=== PATIENT | male | born 1960 | race Caucasian/White ===

== ENCOUNTER 2017-11-14 05:30 | Day surgery (SDC) | payer OTHER ==
[2017-11-09 13:21] VITALS: BMI 40.0
--- NOTE | 2017-11-09 13:36 | PAT Medication Instructions ---
Service Date Nov 09, 2017. Current Home Medication List Acetaminophen (Tylenol), 1-2 TAB PO PRN Ibuprofen (Advil), 200-400 MG PO PRN Multiple Vitamins W/ Minerals (Multi For Her 50+), 1 TAB PO QAM Valsartan/Hctz (Diovan Hct 160MG/12.5MG), 1 TAB PO QAM Vitamins C & E (Vitamin C), 1 TAB PO QAM [Iron Tab], 1 TAB PO QAM Medication Instructions For Your Scheduled Surgery - Check with surgeon for instructions: Ibuprofen (Advil), 200-400 MG PO PRN - Hold the following medications the morning of surgery: [Iron Tab], 1 TAB PO QAM Vitamins C (Vitamin C), 1 TAB PO QAM Multiple Vitamins W/ Minerals (Multi For Her 50+), 1 TAB PO QAM Valsartan/Hctz (Diovan Hct 160MG/12.5MG), 1 TAB PO QAM - Take the following medications the morning of surgery with a sip of water: Acetaminophen (Tylenol), 1-2 TAB PO PRN (okay to take up to 4 hours prior to surgery if needed) - Take the following medications as scheduled the night before surgery: Acetaminophen (Tylenol), 1-2 TAB PO PRN (okay to take up to 4 hours prior to surgery if needed) If you have any questions please call us at [phone] or [phone] or [phone]
[2017-11-09 14:58] LABS: BASO % 0.5 %; BASO ABS # 0.05 K/uL (0-0.2); EOS % 1.1 %; HEMATOCRIT 46.9 % (42-52); HEMOGLOBIN 16.9 g/dL (14.0-18.0); IG# 0.03 K/uL (0.00-0.02); LYMPH % 15.9 %; LYMPH ABS # 1.49 K/uL (1.2-3.4); MEAN CELL VOLUME 88.2 fL (80-100); MEAN CORPUSCULAR HEMOGLOBIN 31.8 pg (25-34); MEAN PLATELET VOLUME 10.5 fL (7.4-10.4); MONO ABS # 0.56 K/uL (0.11-0.59); NEUT % 76.2 %; NEUT ABS # 7.17 K/uL (1.4-6.5); PLATELET COUNT 167 K/uL (130-400); RED CELL DISTRIBUTION WIDTH CV 13.6 % (11.5-14.5); RED CELL DISTRIBUTION WIDTH SD 43.7 fL (36.4-46.3)
--- NOTE | 2017-11-10 08:22 | Radiation Oncology Follow-Up ---
Radiation Oncology Follow-Up Date of Visit Nov 10, 2017. Reason For Visit To have placement of gold fiducial markers and Space OAR Diagnosis (1) Prostate cancer Status: Acute Onset Date: 07/03/2017 Location: Left lobe of the prostate Histology Subtype: adenocarcinoma Stage: ll Permanent Comment: Rising PSA, 5.900 on 04/01/2015 Status post core needle biopsies 06/01/2015, benign Rising PSA, 7.549 on 12/19/2016 Status post core needle biopsies 07/03/2017 Adenocarcinoma prostate Darrion 3+4 Prostate volume 52.17 Prostate density 0.15 Last Edited By: Malini Myers on Aug 30, 2017 11:22 History of Present Illness In summary Mr. Kat is a 56-year-old male without family history of prostate cancer. He is been followed with serial prostate-specific antigens. Back in February 2015 his prostate-specific antigen increased to 5.866. The prostate-specific antigen was repeated on 04/01/2015 and remained elevated at 5.900. At that time the patient was under the care of Dr. Sadiq Briones scrub tech and at [facility] underwent ultrasound-guided biopsies. Biopsies at that time were benign. He continued to be followed with prostate- specific antigens in December 2015 at 6.493, 06/20/2016 at 6.290 and ultimately on with a prostate-specific antigen of 7.915. At this point the patient had moved to the [place] area was under the care of Dr. Dubon. She discussed diagnostic options. With the patient's permission she proceeded with ordering a staging MRI performed on 06/05/2017. This showed 2 areas of suspicion. 1 area measured 1.6 x 1.1 cm in the left peripheral zone, mid and apex, anterior region and a second measuring 1.2 cm in the right transitional zone, base, anterior region. The study was given a PI-RADS 3. The ultrasound- guided biopsy followed on 07/03/2017. 2 biopsies were positive. One biopsy was from the left lateral mid gland containing Darrion grade 3+4 involving 10% of the core tissue sample a Darrion pattern 4 representing 10% of the overall tumor volume. The second positive biopsy was from the left lateral apex revealed Darrion grade 3+4 involving 5% of the core tissue sample with a Darrion pattern 4 representing 10% of the tumor volume. The clinical stage was therefore a T1c and the biopsy stage was a T2b. The patient is being seen by Dr. Gómez on September 14 to discuss the surgical treatment options. We were asked to see the patient to discuss the radiation treatment options. I met with the patient and his friend Poornima and reviewed specifics of his prostate cancer based on the NCCN Guidelines and in particular the 2010 guideline updates. As part of that discussion we initially evaluated anticipated survival of a 56-year-old male of average health. This indicated a likely survival of 23.7 years. We then reviewed his tumor classification. I reviewed with him the very low risk category of which the patient shares several positive findings. These include clinical stage TIc, prostate-specific antigen density of 0.15, two or less biopsies positive and tumor volume less than 50% in any one biopsy sample. The patient did not meet the remaining 2 criteria. He also does not meet the criteria for low risk given the [place] score. He therefore is in the favorable intermediate risk category. Within this grouping he would be closer to the low risk category given the small amount of Darrion pattern 4. I reviewed with them the Avery table findings. The probability of organ confined disease based on Avery tables is 59%. The probability of extraprostatic extension is 34%. The probability of seminal vesicle involvement is 6% and lymph node involvement is 1%. I told him that I utilized the Avery table data to help determine the volume to be treated. I told him that if I were to treat him with radiation I would want to include the prostate and immediate periprostatic tissues but would not necessarily need to include the majority of seminal vesicles and would definitely not include the pelvic lymph nodes. Because of this I did not feel he would be the best candidate for a prostate seed implant as monotherapy. I therefore suggested consideration of a hypo-fractionated course of external radiation. This would consist of IMRT and IGRT to encompass the target volume delivered daily over 28 fractions. This treatment would be proceeded by placement of gold fiducial markers and SpaceOAR. I reviewed with the patient potential risks and side effects of a course of hypo -fractionated radiation. This included a discussion of both acute and chronic side effects including the possibility of decreased potency or impotence. Included in that discussion with the small possibility of a secondary malignancy in 10-20 years of the bladder or rectum. I also reviewed with the patient the likelihood of tumor control. Patient is scheduled to see Dr. Gómez September 14. I told him that I felt there was no right treatment for him and that he should proceed with comparing the 2 treatments and choosing that treatment which he feels most comfortable. I told him that if he were to have additional questions that I would be happy to answer them on the phone. He indicated he would make a decision and would let us know his final preference. If he is to proceed with radiation we will proceed with scheduling him for gold fiducial markers seeds placement and SpaceOAR. This would be followed by a treatment planning MRI and ultimately by a CT simulation. Interim History Mr. Rosario reported to our office on November 03, 2017 to undergo outpatient placement of Space OAR and gold fiducial markers. He had taken his preprocedure medication as instructed. He had taken lorazepam 0.5 mg and oxycodone APAP 7.5/325 one hour prior to his procedure. The procedure was started. He unfortunately could not tolerate the anal probe. He was given additional second dose of the lorazepam and oxycodone. After waiting sufficient amount of time the procedure was attempted once again. Unfortunately he could not tolerate the rectal probe. At that time the decision was made to abort the outpatient setting and schedule him to have this procedure with the use of anesthesia. Allergies Coded Allergies: Lisinopril (Verified Allergy, Unknown, COUGH, 11/09/17) Home Medications Scheduled Acetaminophen (Tylenol), 1-2 TAB PO PRN Ibuprofen (Advil), 200-400 MG PO PRN Multiple Vitamins W/ Minerals (Multi For Her 50+), 1 TAB PO QAM Valsartan/Hctz (Diovan Hct 160MG/12.5MG), 1 TAB PO QAM Vitamins C & E (Vitamin C), 1 TAB PO QAM [Iron Tab], 1 TAB PO QAM Review of Systems Gastrointestinal: Symptoms: WNL Oral: Symptoms: No Problems Respiratory: Symptoms: WNL Urinary: Additional Notes: AUA score of 6. He does not require any medications to help with urination. Skin: Symptoms: No Problems Physical Exam Taken preoperatively. Taken at our office consultation. Height 5 foot 11 inches. Weight 293 pounds. Temperature 36.6. Pulse was 68. Respirations 16. Blood pressure was 137/86 and pulse oximetry was 95%. ECOG Performance Status: 0 Fatigue: None General Appearance: + obese Eyes: normal inspection, EOMI ENT: normal ENT inspection, hearing grossly normal Respiratory/Chest: lungs clear, no respiratory distress, no accessory muscle use Cardiovascular: regular rate, rhythm, no gallop, no murmur Abdomen: non tender, soft, no organomegaly Extremities: no pedal edema Neurologic/Psychiatric: no motor/sensory deficits, alert, normal mood/affect Skin: warm/dry Pain Management Patient Reports Pain: No Initial Pain Intensity: 0.0 Pain Management Plan He requires no pain management. Laboratory Laboratory Results: were reviewed, and pertinent findings noted in HPI Pathology Pathology Results: were reviewed, and pertinent findings noted in HPI Imaging Imaging Studies: were reviewed, and pertinent findings noted in HPI Assessment & Plan Plan: Patient will undergo placement of gold fiducial markers and Space OAR under anesthesia in the operating room. This is performed because he could not tolerate the procedure in the outpatient setting. He will then be scheduled for follow-up MRI and CT simulation. Radiation therapy will begin when the treatment plans are completed. Assessment & Plan (Attending) I agree with note created by Malini Myers PA-C. I reviewed the patient's chart and information with her. I have examined and evaluated the patient. I reviewed relevant clinical information and answered the patient's and/or family' s questions. 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
[~2017-11-14] VITALS: Ht 182.9 cm; Wt 133.7 kg
[~2017-11-14 05:30] MED LIST: ACET-1256 PO; IBUP-1050 PO; IRON TAB PO; MULT-223 PO; VALS160T58 PO; VITACAP26 PO
[2017-11-14] MEDS ORDERED: MULT-513 PO (05:43)
[2017-11-14 05:59] VITALS: BP 159/94; PULSE 74; TEMP 36.8; O2SAT 94; Ht 182.9 cm; Wt 133.7 kg
[2017-11-14] MEDS ORDERED: LACTATED RINGER'S 1000ML 1,000 ML IV SCH (06:00)
[2017-11-14] MEDS ORDERED: ONDANSETRON INJ 2 MG/ML 2 ML VIAL ONE (06:56)
[2017-11-14] MEDS ORDERED: PROPOFOL IV EMULSION 10 MG/ML 20 ML VIAL IV ONE (06:56)
[2017-11-14] MEDS ORDERED: LIDOCAINE HCL 2% 2 ML VIAL (20MG/ML) ONE (06:56)
[2017-11-14] MEDS ORDERED: FENTANYL CITRATE INJ 50 MCG/1 ML 2 ML VIAL ONE (06:57)
[2017-11-14] MEDS ORDERED: MIDAZOLAM HCL 1 MG/ML 2ML VIAL ONE (06:57)
--- NOTE | 2017-11-14 07:03 | History & Physical Bridge Note ---
H&P Re-Evaluation Bridge Note: I have examined the patient, reviewed the History & Physical and in the interval since the performance of the History & Physical I have noted the following changes of clinical significance: No changes noted
[2017-11-14] MEDS ORDERED: DEXAMETHASONE SOD INJ 4 MG/ML VIAL ONE (07:42)
[2017-11-14] MEDS ORDERED: ONDANSETRON INJ 2 MG/ML 2 ML VIAL IV PRN (08:15)
[2017-11-14] MEDS ORDERED: ATROPINE SULFATE 0.1 MG/ML 5ML SYR IV PRN (08:15)
[2017-11-14] MEDS ORDERED: EpHEDrine SULFATE INJ 50 MG/ML AMP IV PRN (08:15)
[2017-11-14] MEDS ORDERED: FENTANYL CITRATE INJ 50 MCG/1 ML 2 ML VIAL IV PRN (08:15)
--- NOTE | 2017-11-14 08:16 | [facility] Post Operative Brief Note ---
Immediate Operative Summary Operative Date Nov 14, 2017. Pre-Operative Diagnosis Prostate Cancer Post-Operative Diagnosis Prostate Cancer Procedure(s) Performed Placement of 3 Gold Seed Fiducial Markers and Spaceoar Hydrogel Surgeon Dr. Garcia Health Data Administrator Surgeon(s) Malini Myers,PAC Estimated Blood Loss 10 ml Findings Successful placement of 3 gold-fiducial markers and spaceOAR hydrogel. Specimens none per surgeon Drains None Anesthesia General Complication(s) None Disposition Recovery Room / PACU
[2017-11-14] MEDS ORDERED: OXYCODONE/ACETAMINOPHEN 5-325 TAB PO PRN (08:30)
--- NOTE | 2017-11-14 08:52 | [facility] Operative Report ---
Operative Report Operative Date Nov 14, 2017. Pre-Operative Diagnosis Prostate Cancer Post-Operative Diagnosis Prostate Cancer Procedure(s) Performed Placement of gold fiducial markers and spaceOAR hydrogel Surgeon Dr. Garcia Heat Transfer Technician Surgeon(s) Malini Myers,RASHIDA Estimated Blood Loss 10 ml Findings Placement of 3 gold fiducial markers into prostate gland. Placement of SpaceOAR hyrogel rectal spacer. Specimens none per surgeon Drains None Anesthesia General Complication(s) None Disposition Recovery Room / PACU Indications Mr. Mike is a 57 year old male with intermediate risk prostate cancer who has elected for external beam radiation therapy. The patient has elected to undergo gold fiducial marker placement and spaceOAR hydrogel placement. Description of Procedure The patient was correctly identified and was brought to the surgery suite. His identity was independently verified by checking his name and date of as written on his wrist band. After the timeout procedure, the appropriate level of anesthetic induction was carried out and the patient was placed in the lithotomy position. The patient's scrotum was taped up and the implant area was cleansed. The stepper was attached to the bed and secured. The ultrasound probe and template were attached to the stepper and was positioned appropriately. The ultrasound probe was then gently inserted into the rectum to ensure adequate imaging of the prostate gland. Fine adjustments were made until the individual slices taken at 5 mm thickness were identified. Three pre-loaded needles were then placed in the periphery around the gland. The position of each needle was captured under ultrasound prior to placement of each gold fiducial markers. They were placed systemically to optimize their function during image guided radiation therapy. Fluoroscopy was then utilized to confirm proper placement of the 3 gold fiducial markers. We then turned our attention to the placement of the SpaceOAR Hydrogel. Initially, we did set up the injection system for the SpaceOAR hydrogel on the prep table. We then attached a long spinal needle to a 10 cc syringe with normal saline. The needle was then inserted into the perineum anterior to the anal verge under ultrasound guidance. The needle was slowly advanced and then we penetrated denonvillier's fascia under ultrasound guidance. The tissue plane was hydrodissected to confirm the proper position of the needle. After confirming proper needle placement, we reviewed the needle position and confirmed it was midline by viewing the ultrasound imaging in both the transverse and sagittal planes. Then we attached the SpaceOAR injection system to the needle and slowly injected the hydrogel over 8 seconds. We then confirmed successful placement of the hydrogel utilizing the ultrasound probe in both the transverse and sagittal positions. The transrectal ultrasound probe was then removed from the rectum and all the needles were counted and confirmed to be removed from the patient. The patient had no significant bleeding. The patient was then successfully extubated from general anesthesia. I attest to the content of the Intraoperative Record and any orders documented therein. Any exceptions are noted below.
--- NOTE | 2017-11-14 09:06 | Discharge Instructions ---
Discharge Instructions Date of Service Nov 14, 2017. Visit Reason for Visit: Prostate Cancer Discharge Discharge Diagnosis / Problem: status post placement of gold fiducial markers/ spaceOAR hydrogel Discharge Goals Goal(s): Decrease discomfort, Improve function, Increase independence, Therapeutic intervention Activity Recommendations Activity Limitations: resume your previous activity Lifting Limitations: none Exercise/Sports Limitations: none May Resume Sexual Activity: when tolerated Shower/Bathe: no limitations Driving or Machine Use: no limitations Weightbearing Status: Left weightbearing, Right weightbearing None Anesthesia . Post Anesthesia Instructions: If you have had General Anesthesia or IV Sedation: * Do not drive today. * Resume driving when surgeon permits. * Do not make important decisions or sign legal documents today. * Call surgeon for: 1. Temperature elevations greater than 100.5 degrees F. 2. Uncontrollable pain. 3. Excessive bleeding. 4. Persistent nausea and vomiting. 5. Medication intolerance (nausea, vomiting or rash). * For nausea and vomiting use only clear liquids such as: tea, soda, bouillon until nausea subsides, then gradually increase diet as tolerated. * If you have any concerns or questions, call your surgeon's office. If physician is unavailable and it is an emergency, call 911 or go to the nearest emergency room. . Instructions / Follow-Up Instructions / Follow-Up Will I feel any discomfort or pain during or after the procedure? Your doctor will either use an anesthetic that will put you to sleep during the procedure or a local anesthetic that will numb the injection area. You may feel a pinprick or pressure but should not feel any major discomfort. After the procedure you may experience some temporary discomfort at the injection site. SpaceOAR hydrogel patients typically report no prolonged discomfort from the implanted hydrogel. How soon can I go back to my normal activities? You should be able to immediately resume your normal activities. Always be sure to check with your doctor for any restrictions associated with the procedure and your radiation treatment. How long does it stay in my body? SpaceOAR hydrogel separates your prostate and rectum for about 3 months providing protection during radiation treatment and is naturally absorbed in about six months well after your last treatment. Other home care Eat a normal healthy diet, unless your provider gives you other instructions. Take all medicines exactly as directed. If you have a bandage or dressing, care for it according to your providers directions. Dont be alarmed by mild redness and hair loss in the treated area. This is a common side effect. But if your skin becomes very irritated, call your provider. Dont scratch the treated area as skin tissue may be sensitive. Dont use skin lotions or powders unless recommended by your provider. Take care of the skin around the area where your catheter was inserted: Wash the area with mild soap and lukewarm water and gently pat it dry. Protect the affected area from extreme heat or cold. This includes~hot showers, hot water bottles, heating pads, or ice packs. Avoid clothing that causes friction or rubbing on the skin. Tell your provider at your follow-up visit if you have any of the following: o Trouble eating your usual diet or having a bowel movement o Red, swollen, or tender areas of skin o Peeling~skin that leaves the treated area sore and moist Follow-up Make a follow-up appointment as directed by your provider. Radiation oncology department may have already given your appointments to you already. Call if you have any questions or concerns. Diet Recommendations Recommended Home Diet: no limitations Procedures Procedures Performed: Placement of 3 Gold Seed Fiducial Markers and SpaceOAR Hydrogel Pending Studies Studies pending at discharge: no Work Instructions Additional Instructions: Patient may return to work next day with no restrictions. Medical Emergencies . Who to Call and When: Medical Emergencies: If at any time you feel your situation is an emergency, please call 911 immediately. . Non-Emergent Contact Non-Emergency issues call your: Specialist (Radiation Oncologist) Contact Number: [phone] Call Non-Emergent contact if: you have a fever, temperature is above 100.5, your pain is not controlled, your pain is worsening, your pain is unusual for you, your pain is concerning you, wound has increased drainage, wound has increased redness, wound has increased pain, you have any medication questions Chest pain or trouble breathing (call 911) A fever of 100.5 degrees F (38 degrees C) or higher Chills A feeling of weakness Blood clots in your urine Bloody diarrhea Inability to urinate Blood in the urine or stool that doesnt go away after 48 hours . Past History Medical & Surgical History: (1) Prostate cancer . "Provider Documentation" section prepared by Mliton Garcia. .
[2017-11-14 09:10] VITALS: BP 110/72; PULSE 60; TEMP 36.4; O2SAT 93
--- NOTE | 2017-11-14 09:11 | Anesthesiology Progress Note ---
Anesthesia Post Op Note Date & Time Nov 14, 2017 at 09:11 Vital Signs Pain Intensity: 0 Vital Signs Past 12 Hours Date Time Temp Pulse Resp B/P (MAP) Pulse Ox O2 Delivery O2 Flow Rate FiO2 11/14/17 09:05 60 16 117/73 94 Room Air 11/14/17 08:55 36.4 60 16 126/72 94 Room Air 11/14/17 08:45 56 16 128/77 96 Oxymask 3 11/14/17 08:35 65 16 113/76 95 Oxymask 5 11/14/17 08:25 58 12 113/65 93 Oxymask 10 11/14/17 08:19 36.2 57 12 104/60 93 Oxymask 10 11/14/17 05:59 36.8 74 20 159/94 (115) 94 Room Air Notes Mental Status: alert / awake / arousable, participated in evaluation Pt Amnestic to Procedure: Yes Nausea / Vomiting: adequately controlled Pain: adequately controlled Airway Patency, RR, SpO2: stable & adequate BP & HR: stable & adequate Hydration State: stable & adequate Anesthetic Complications: no major complications apparent
[2017-11-14] MEDS ORDERED: ACET-1256 PO (09:29)
[2017-11-14] MEDS ORDERED: IRON TAB PO (09:29)
[2017-11-14 09:40] VITALS: BP 106/59; PULSE 63; TEMP 36.4; O2SAT 95
== END 2017-11-14 10:25 | disposition home or self-care (01) ==
LOC: C.ACU 05:30
PROVIDERS: ATTEND Radiology Radiation Oncology
DX: C61 Malignant neoplasm of prostate (principal); I10 Essential (primary) hypertension; Z88.8 Allergy status to other drugs, medicaments and biological substances; Z79.899 Other long term (current) drug therapy; E66.01 Morbid (severe) obesity due to excess calories; Z68.41 Body mass index [BMI] 40.0-44.9, adult

== ENCOUNTER → 2017-11-21 | Outpatient (CLI) | payer OTHER ==
[~2017-11-21] MED LIST changes: +GADAVIST IV PRN; -MULT-223 PO; +MULT-513 PO
--- NOTE | 2017-11-21 14:53 | DIAGNOSTIC IMAGING REPORT ---
PROSTATE MRI COMBO CLINICAL HISTORY: 57-year-old male with prostate cancer. TECHNIQUE: Multisequence, multiplanar MR imaging of the prostate was performed before and after the administration of intravenous contrast 13 cc of Gadavist. Additional postprocessing was performed on a separate Share Some Style workstation by the radiologist for 3-D volumetric segmentation of the prostate and contouring of region(s) of interest (VALERIA) for targeting. COMPARISON: Prostate MRI from [facility] June 02, 2017. FINDINGS: Prostate: The prostate measures 5.6 x 4 x 4.4 cm (DynaCAD prostate boundary segmentation volume 49.76 mL). Moderate changes of benign prostatic hyperplasia. Precontrast T1 weighted imaging demonstrates no evidence of intrinsic T1 hyperintensity to suggest hemorrhage. Suspicious lesion(s) described below: Lesion (xAdaCAD VALERIA) 1: Note is made of a 1.9 x 1.1 x 1.2 cm ill-defined T2 hypointense lesion within the left lateral aspect of the peripheral zone, slightly anterior, located within the mid and apical portions of the prostate gland. This demonstrates restricted diffusion with decreased signal intensity on the ADC map. This region is hypervascular. No additional suspicious lesions are identified on this exam. T2 hyperintense material located between the prostate and rectum represents a hydrogel spacer which appears appropriately positioned. Seminal vesicles normal. Bladder: Normal. Bowel: Visualized portion of the rectum normal. Peritoneum: No free fluid in the pelvis. Lymph nodes: No lymphadenopathy in the visualized portion of the pelvis. Vasculature: Iliac vessels patent. Abdominal wall: Normal. Osseous structures: Normal bone marrow signal intensity. IMPRESSION: 1. 1.9 x 1.1 x 1.2 cm T2 hypointense lesion within the left anterolateral aspect of the peripheral zone involving the mid portion and apex of the prostate. This is highly suggestive of prostate cancer and may reflect the biopsy-proven cancer. This lesion is considered PI-RADS 5. Highly suspicious for malignancy. 2. Appropriately positioned hydrogel spacer. 3. Moderate benign prostatic hyperplasia. Electronically signed by: Bobo Pearson M.D. 11/21/2017 2:52 PM Dictated Date/Time: 11/21/2017 11:43 AM
== END | disposition home or self-care (01) ==
LOC: C.MRIBC 08:22
PROVIDERS: ATTEND Physician Assistant Medical
DX: C61 Malignant neoplasm of prostate (principal)